=== PATIENT | female | born 1990 | race African-American/Black ===

== ENCOUNTER 2019-01-02 23:34 | Emergency (ER) | payer MEDICAID ==
[~2019-01-02] VITALS: Ht 167.6 cm; Wt 130.0 kg
[2019-01-02 23:55] VITALS: BP 113/78
== END 2019-01-03 00:21 | disposition home or self-care (01) ==
LOC: ER 23:36
DX: Z00.8 Encounter for other general examination (principal); Z88.0 Allergy status to penicillin
CPT/HCPCS: 99283